=== PATIENT | male | born 1965 | race Caucasian/White ===

== ENCOUNTER 2025-03-12 17:50 | Observation (INO) | payer SELFPAY ==
--- OUTSIDE RECORDS SUMMARY | 2025-03-11 01:22 | XMS_ITS | Encounter Summary ---
Author Organization [facility] Healthcare Address [address] [place] [address] Care Team Providers Care Book Editor Name Role Phone Justin Castro DO Primary Care Provider + Reason for Visit * Reason Comments Headache Encounter Details Date Type Department Care Team ([facility] st Contact Info) Description 03/11/2025 1:22 AM CDT - 03/11/2025 2:29 AM CDT Emergency [address] [address] Shay Rendon MD [address] [place] [id number] Acute nonintractable headache, unspecified headache type (Primary Dx); Hypertensive urgency Discharge Disposition: Discharge to home or self care Social History Tobacco Use Types Packs/Day Years Used Date Smoking Tobacco: Former Cigarettes Q uit: 1994 Smokeless Tobacco: Never Alcohol Use Standard Drinks/Week Comments Not Currently 0 (1 standard drink = 0.6 oz pur e alcohol) AUDIT-C Answer Date Recorded Q1: How often do you have a drink containing alc ohol? 2-4 times a month 08/10/2021 Q2: How many drinks containi ng alcohol do you have on a typical day when you are drinking? 1 or 2 08/10/2021 Q3: How often do you have si x or more drinks on one occasion? Never 08/10/2021 PHQ-2 Answer Date Recorded PHQ-2 Total Score (If total score is 3 or more points, staff should administer the PHQ-9) 0 03/10/2021 Personal Safety Answer Date Recorded Have you ever been in or are you currently in a harmful physical or emotional relationship or is someone making you feel afraid or unsafe? Denies 03/10/2025 Sex and Gender Information Value Date Recorded Sex Assigned at Not on file Legal Sex Male 5:05 AM [employer] Gender Identity Not on file Sexual Orientation Not on file documented as of this encounter Last Filed Vital Signs Vital Sign Reading Time Taken Comments Blood Pressure 132/81 03/11/2025 2:00 AM CDT Pulse 57 03/11/2025 2:00 AM CDT Temperature 37 C (98.6 F) 03/10/2025 8:20 PM CDT Respiratory Rate 18 03/11/2025 12:2 6 AM CDT Oxygen Saturation 94% 03/11/2025 2:00 AM CDT Inhaled Oxygen Concentration - - Weight 110.2 kg (242 lb 15.2 oz) 03/10/2025 8:37 PM CDT Height - - Body Mass Index 34.86 09/12/2024 9:34 AM CDT documented in this encounter Discharge Instructions * Attachments The following attachments cannot be sent through Care Everywhere. * Acute Headache (AfterCare(R) Instructions(ER/ED)) (K[place]) documented in this encounter Medications at Time of Discharge aspirin 81 mg enteric coated tablet Take 1 tablet (81 mg total) by mouth daily lisinopriL (PRINIVIL,ZESTRIL ) 40 mg tablet Take 1 tablet by mouth once daily 90 tablet 1 10/15/2024 metoprolol XL (TOPROL-XL) 100 mg 24 hr tablet Take 1 tablet by mouth once daily 90 tablet 1 02/18/2025 nitroglycerin (NITROSTAT) 0.[address] 1 tablet (0.4 mg total) under the tongue every 5 (five) minutes as needed for chest pain 25 tablet 11/05/2023 documented as of this encounter Discharge Disposition Disposition Code Departure Means Destination Comment s Discharge to home or self care documented in this encounter ED Notes * Lou Ayala PA - 03/11/2025 1:51 AM CDT ED NOTE Chief Complaint Chief Complaint Patient presents with Headache History of Present Illness The patient is a 59 y.o. male who presents for evaluation of headache x1 week. Patient notes headache has moved around but mostly in the frontal. Reports nausea and vomiting. Blood pressure noted to be elevated. He took his blood pressure medications at home. Also took Tylenol and Vicodin without improvement. He also had some dizziness. Denies vision changes. History of migraines. Denies trauma or injury. Medical History ALLERGIES: No Known Allergies MEDICATIONS: Prior to Admission medications Medication Sig Start Date End Date Taking? Authorizing Provider aspirin 81 mg enteric coated tablet Take 1 tablet (81 mg total) by mouth daily Provider, MD Kelsy lisinopriL (PRINIVIL,ZESTRIL) 40 mg tablet Take 1 tablet by mouth once daily 10/15/24 PrasadV. Wright MD metoprolol XL (TOPROL-XL) 100 mg 24 hr tablet Take 1 tablet by mouth once daily 02/18/25 Guanaco Wright MD nitroglycerin (NITROSTAT) 0.[address] 1 tablet (0.4 mg total) under the tongue every 5 (five) minutes as needed for chest pain 11/05/23 Guanaco Wright MD PAST MEDICAL HISTORY: Past Medical History: Diagnosis Date CAD (coronary artery disease) Dyslipidemia Ear problems Heart attack (HCC) HL (hearing loss) HTN (hypertension) Hyperlipidemia NSTEMI (non-ST elevated myocardial infarction) (HCC) Tinnitus PAST SURGICAL HISTORY: Past Surgical History: Procedure Laterality Date CARDIAC CATHETERIZATION CORONARY ANGIOPLASTY CORONARY STENT PLACEMENT FAMILY HISTORY: Family History Problem Relation Age of Onset No Known Problems Mother No Known Problems Father No Known Problems Sister No Known Problems Son SOCIAL HISTORY: Social History Tobacco Use Smoking status: Former Current packs/day: 0.00 Types: Cigarettes Quit date: 1994 Years since quittin.8 Smokeless tobacco: Never Substance and Sexual Activity Drug use: Never Sexual activity: Not on file Alcohol Use: Not At Risk (08/10/2021) AUDIT-C Frequency of Alcohol Consumption: 2-4 times a month Average Number of Drinks: 1 or 2 Frequency of Binge Drinking: Never Review of Systems All systems reviewed and are neg or non contributory for this patients presentation today other than as stated in the HPI . Physical Exam BP 142/79 Pulse 59 Temp 37 ??C (98.6 ??F) Resp 18 Wt 110.2 kg (242 lb 15.2 oz) SpO2 95% BMI 34.86 kg/m?? Physical Exam Vitals and nursing note reviewed. Eyes: Conjunctiva/sclera: Conjunctivae normal. Cardiovascular: Rate and Rhythm: Normal rate and regular rhythm. Pulses: Normal pulses. Heart sounds: Normal heart sounds. Pulmonary: Effort: Pulmonary effort is normal. Breath sounds: Normal breath sounds. Musculoskeletal: General: Normal range of motion. Cervical back: Normal range of motion and neck supple. Skin: General: Skin is warm. Capillary Refill: Capillary refill takes less than 2 seconds. Neurological: General: No focal deficit present. Mental Status: He is alert. Psychiatric: Mood and Affect: Mood normal. Diagnostic Studies / Procedures LABORATORY STUDIES: Labs Reviewed URINALYSIS AND REFLEX TO MICROSCOPIC AND CULTURE - Abnormal Result Value Color, ur Yellow Clarity, ur Clear Specific gravity, ur 1.020 pH, urine 7.5 Protein, ur ql 1+ (*) Glucose, ur ql Negative Ketones, ur Negative Bilirubin, ur Negative Blood, ur Negative Urobilinogen, ur <2.0 Nitrite, ur Negative Leukocyte esterase, ur Negative UA reflex comment Reflex to microscopic UA will be performed. CBC WITH AUTO DIFFERENTIAL - Abnormal WBC 10.50 (*) Hgb 16.5 Hct 47.6 Plt 246 MPV 10.3 RBC 5.64 MCV 84.4 MCH 29.3 MCHC 34.7 RDW CV 12.5 RDW SD 38.2 NRBC abs 0.00 DIFFERENTIAL AUTO - Abnormal Neutrophil abs 8.78 (*) Imm gran abs 0.04 Lymphocyte abs 1.36 Monocyte abs 0.26 Eosinophil abs 0.02 Basophil abs 0.04 Neutrophil pct 83.5 Imm gran pct 0.4 Lymphocyte pct 13.0 Monocyte pct 2.5 Eosinophil pct 0.2 Basophil pct 0.4 URINALYSIS, MICROSCOPIC ONLY - Abnormal WBC, ur 6-10 (*) RBC, ur 0-2 Mucous, ur Present (*) Culture Reflex Comment Value: Reflex conditions for urine culture (WBC >10) not met. COMPREHENSIVE METABOLIC PANEL Sodium 137 Potassium, pl 4.1 Chloride 100 CO2 23 Anion gap 14 BUN 12 Creatinine 0.88 Glucose 151 Calcium 9.5 Bilirubin, total 0.5 Protein, pl 7.3 Albumin 4.4 Alk phos 68 ALT 27 AST 25 TROPONIN T HIGH-SENSITIVITY SERIES (BASELINE, 2HR, 4HR, 6HR) Trop T hs 9 TROPONIN T HIGH-SENSITIVITY 2-HOUR Trop T hs 9 Trop T hs delta 0 Trop T hs interp Insignificant EGFR eGFR >90 IMAGING STUDIES: CT Head WO Contrast Final Result 1. No acute process is identified. Electronically signed by: Nick Marvin M.D. CT Head WO Contrast Result Date: 03/10/2025 Narrative: MEDICAL RECORDS NUMBER: [id number] PROCEDURE: CT HEAD WO CONTRAST Date: 03/10/2025 9:10 PM HISTORY: 59 years old Male. Headache, new onset (Age >= 51y) TECHNIQUE: Contiguous axial imageswere acquired from the skull base through to the vertex. Sagittal and coronal reconstruction imagesare provided. CONTRAST: None COMPARISON: None RADIATION DOSE INFORMATION: Automated exposure control dose reduction techniques were used. FINDINGS: Ventricles: Atrophy of the brain is seen diffusely.The ventricles appear grossly unremarkable. Masses: No mass effect is seen. Hemorrhage: No blood products are identified. Skull: The calvarium is intact. Sinuses: The paranasal sinuses are clear. Mastoids: No fluid is seen in the mastoid air cells. Impression: 1. No acute process is identified. Electronically signed by: Nick Marvin M.D. Procedures ED Course / Medical Decision Making MDM Number of Diagnoses or Management Options Acute nonintractable headache, unspecified headache type Hypertensive urgency Diagnosis management comments: DDX includes but is not limited to: Headache, migraine, tension headache, hypertensive urgency versus emergency Patient presents for headache x1 week. Hypertensive upon arrival. Labs okay. CT head negative. Patient was given migraine cocktail and clonidine. Blood pressure much improved. Patient's symptoms haveresolved. Plan for discharge. Advised patient needs to follow up closely with primary care doctor this week for re- evaluation of blood pressure. Strict verbal return precautions reviewed. Patient expresses verbal understanding and agreement with plan. All questions answered to the best of my ability. Nontoxic exit exam. Patient discharged home in stable condition. Amount and/or Complexity of Data Reviewed Clinical lab tests: ordered and reviewed Tests in the radiology section of CPT??: ordered and reviewed Medications ondansetron (ZOFRAN) injection 4 mg (has no administration in time range) cloNIDine (CATAPRES) tablet 0.2 mg (0.2 mg oral Given 03/10/252300) ketorolac (TORADOL) 30 mg/mL injection 15 mg (15 mg intravenous Given 03/10/252301) metoclopramide (REGLAN) 5 mg/mL injection 10 mg (10 mg intravenous Given 03/10/252302) diphenhydrAMINE (BENADRYL) 50 mg/mL injection 25 mg (25 mg intravenous Given 03/10/252304) Diagnoses that have been ruled out: None Diagnoses that are still under consideration: None Final diagnoses: Acute nonintractable headache, unspecified headache type Hypertensive urgency Disposition: DISPOSITION: Home Follow-Up: Justin Castro, DO [address] [facility] [address] [facility] [address] GOLDIE Cooper 03/11/2025 Lou Ayala PA 03/11/25 [id number] * Elisa Bradford RN - 03/10/2025 8:37 PM CDT Pt ambulatory here to triage with c/o headache all over pain 01/21, HUI present since last week and has just increased, pt states he took Advil over the past few days and reports he is not supposed to take it r/t htn. Pt states his blood pressure has been high today, pt states he took 3 doses of lisinopril, 1 gm tylenol, Vicodin around 1700 and went to sleep, pt reports taking 2 baby asa around 11 am. Pt reports vomiting on the way here, pt states he is seeing shadows and having some dizziness intermittently. Pt states he has hx of migraines, last one over 10 years ago. documented in this encounter Plan of Treatment Not on file documented as of this encounter Procedures Procedure Name Priority Date/Time Associated Diagnosis Comments TROPONIN T HIGH-SENSITIVITY 2-HOUR Timed 03/10/2025 10:[address] HEAD WO CONTRAST ED 03/10/2025 9 :52 PM CDT URINALYSIS AND REFLEX TO MICROSCOPIC AND CULTURE STAT 03/10/2025 9:04 PM CDT URINALYSIS, MICROSCOPIC ONLY STAT 03/10/2025 9:04 PM CDT ECG 12-LEAD Routine 03/10/2025 8:54 PM CDT TROPONIN T HIGH-SENSITIVITY SERIES (BASELINE, 2HR, 4HR, 6HR) STAT 03/10/2025 8:52 PM CDT EGFR STAT 03/10/2025 8:52 PM CDT DIFFERENTIAL AUTO STAT 03/10/2025 8:5 2 PM CDT CBC WITH AUTO DIFFERENTIAL STAT 03/10/2025 8:52 PM CDT COMPREHENSIVE METABOLIC PANEL STAT 03/10/2025 8:52 PM CDT documented in this encounter Results * Troponin T high-sensitivity 2-hour (03/10/2025 10:56 PM CDT) Trop T hs 9 <=22 ng/L Comment: Interpretive Data For further hscTnT resources including the diagnostic algorithm and an aid in interpretation, copy and paste this link: https://nrl.testcatalog.org/show/hsTrop Current Interpretive Data last revised 2020. Trop T hs delta 0 ng/L [facility] Trop T hs interp Insignificant [facility] Blood 03/10/2025 10:5 6 PM CDT 03/10/2025 10:58 PM CDT us Talha Alvarado MD LAB BLOOD ORDERABLE S Final Result [facility] [address] [facility] Department [place] [address] * CT Head WO Contrast (03/10/2025 9:52 PM CDT) Anatomical Region Laterality Modality Head and Neck N/A Computed Tomogra phy 03/10/2025 10:0 5 PM CDT Impressions 03/10/2025 10:05 PM CDT 1. No acute process is identified. Electronically signed by: Nick Marvin M.D. Narrative 03/10/2025 10:05 PM CDT MEDICAL RECORDS NUMBER: [id number] PROCEDURE: CT HEAD WO CONTRAST Date: 03/10/2025 9:10 PM HISTORY: 59 years old Male. Headache, new onset (Age >= 51y) TECHNIQUE: Contiguous axial images were acquired from the skull base through to the vertex. Sagittal and coronal reconstruction images are provided. CONTRAST: None COMPARISON: None RADIATION DOSE INFORMATION: Automated exposure control dose reduction techniques were used. FINDINGS: Ventricles: Atrophy of the brain is seen diffusely. The ventricles appear grossly unremarkable. Masses: No mass effect is seen. Hemorrhage: No blood products are identified. Skull: The calvarium is intact. Sinuses: The paranasal sinuses are clear. Mastoids: No fluid is seen in the mastoid air cells. Procedure Note Nick Marvin MD - 03/10/2025 MEDICAL RECORDS NUMBER: [id number] PROCEDURE: CT HEAD WO CONTRAST Date: 03/10/2025 9:10 PM HISTORY: 59 years old Male. Headache, new onset (Age >= 51y) TECHNIQUE: Contiguous axial images were acquired from the skull base through to the vertex. Sagittal and coronal reconstruction images are provided. CONTRAST: None COMPARISON: None RADIATION DOSE INFORMATION: Automated exposure control dose reduction techniques were used. FINDINGS: Ventricles: Atrophy of the brain is seen diffusely. The ventricles appear grossly unremarkable. Masses: No mass effect is seen. Hemorrhage: No blood products are identified. Skull: The calvarium is intact. Sinuses: The paranasal sinuses are clear. Mastoids: No fluid is seen in the mastoid air cells. IMPRESSION: 1. No acute process is identified. Electronically signed by: Nick Marvin M.D. [facility] CT PROCEDURES Final Resul t * (ABNORMAL) Urinalysis, microscopic only (03/10/2025 9:04 PM CDT) WBC, ur 6-10(A) 0 - 5 /HPF RBC, ur 0-2 0 - 2 /HPF [facility] Mucous, ur Present(A) [facility] Culture Reflex Comment Reflex conditions for urine culture (WBC >10) not met. [facility] Urine 03/10/2025 9:04 PM CDT 03/10/2025 9:07 PM CDT Shay Rendon MD LAB URINE ORDERABLES Final Resul t Performing Organization Address [facility] de Phone Number [facility] [address] [place] [address] * (ABNORMAL) Urinalysis reflex to microscopic and culture Urine (03/10/2025 9:04 PM CDT) Color, ur Yellow Yellow Clarity, ur Clear Clear [facility] Specific gravity, ur 1.020 1.003 - 1.030 [facility] pH, urine 7.5 [facility] Comment: Interpretive Data U rine pH is affected by diet, medications, systemic acid-base disturbances, and renal tubular function. pH may affect urinary stone formation. For example, urine pH below 6.0 may help reduce the tendency for calcium phosphate stones and pH greater than 6.0 may reduce the tendency for uric acid stone formation. Source: [facility] Current Interpretive Data was last revised on 2017 Protein, ur ql 1+(A) Negative [facility] Glucose, ur ql Negative Negative [facility] Ketones, ur Negative Negative [facility] Bilirubin, ur Negative Negative [facility] Blood, ur Negative Negative [facility] Urobilinogen, ur <2.0 <2.0 mg/dL [facility] Nitrite, ur Negative Negative [facility] Leukocyte esterase, ur Negative Negative [facility] UA reflex comment Reflex to microscopic UA will be performed. [facility] Urine 03/10/2025 9:04 PM CDT 03/10/2025 9:07 PM CDT Shay Rendon MD LAB MICROBIOLOGY - GENERAL ORDER JASMINA Final Result Performing Organization Address City/[facility]/[employer] de Phone Number [address] [place] [address] * ECG 12 lead (03/10/2025 8:54 PM CDT) Ventricular Rate EKG/Min 69 BPM [facility] Atrial Rate 69 BPM [facility] MT-Interval (MSEC) 178 ms [facility] QRS-Interval (MSEC) 86 ms [facility] QT-Interval (MSEC) 418 ms [facility] QTc 447 ms [facility] P [place] -6 degrees [facility] R [place] -11 degrees [facility] T [place] 24 degrees [facility] Diagnosis Normal sinus rhythm Nonspecific T wave abnormality When compared with ECG of 25-JUN-2024 11:16, Significant changes have occurred Confirmed by SULTAN JENKINS M.D. ([id number]) on 03/11/2025 6:39:07 AM [facility] 03/10/2025 8:54 PM CDT 03/11/2025 6:39 AM CDT us Shay Rendon MD ECG ORDERABLES Final Result [facility] [place] * eGFR (03/10/2025 8:52 PM CDT) eGFR >90 >=60 mL/min/1. 73 m2 Comment: Interpretive Data Reference Interval Normal >/= 90 mL/min/1.73m2 Mildly decreased* 60 - 89 mL/min/1.73m2 Mildly to moderately decreased 45 - 59 mL/min/1.73m2 Moderately to severely decreased 30 - 44 mL/min/1.73m2 Severely decreased 15 - 29 mL/min/1.73m2 Kidney Failure < 15 mL/min/1.73m2 *Relative to young adult level Estimated glomerular filtration rate is determined by the 2020 CKD-EPI equation recommended by the National Kidney Foundation (A Unifying Approach to GFR Estimation: Recommendations of the NKF-ASK Task Force on Reassessing the Inclusion of Race in Diagnosing Kidney Disease, JASN 2020). The CKD-EPI equation should not be used for patients with unstable renal function and has not been validated in children and those over 70. Current interpretive data was last reviewed 2021. Blood 03/10/2025 8:52 PM CDT 03/10/2025 8:54 PM CDT us Shay Rendon MD LAB BLOOD ORDERABLES Final Resul t [facility] [address] [facility] Department [place] [address] * (ABNORMAL) Differential, auto (03/10/2025 8:52 PM CDT) Neutrophil abs 8.78(H) 1.50 - 6.50 K/cumm Imm gran abs 0.04 0.00 - 0.10 K/cumm [facility] Lymphocyte abs 1.36 0.80 - 3.30 K/cumm [facility] Monocyte abs 0.26 0.20 - 0.80 K/cumm [facility] Eosinophil abs 0.02 0.00 - 0.50 K/cumm [facility] Basophil abs 0.04 0.00 - 0.10 K/cumm [facility] Neutrophil pct 83.5 % [facility] Comment: Interpretive Data Percent cell count reference ranges are not reported, since discordance with absolute values may lead to misinterpretation of CBC data. Current Interpretive Data was last revised on 2017. Imm gran pct 0.4 % [facility] Comment: Interpretive Data Percent cell count reference ranges are not reported, since discordance with absolute values may lead to misinterpretation of CBC data. Current Interpretive Data was last revised on 2017. Lymphocyte pct 13.0 % [facility] Comment: Interpretive Data Percent cell count reference ranges are not reported, since discordance with absolute values may lead to misinterpretation of CBC data. Current Interpretive Data was last revised on 2017. Monocyte pct 2.5 % [facility] Comment: Interpretive Data Percent cell count reference ranges are not reported, since discordance with absolute values may lead to misinterpretation of CBC data. Current Interpretive Data was last revised on 2017. Eosinophil pct 0.2 % [facility] Comment: Interpretive Data Percent cell count reference ranges are not reported, since discordance with absolute values may lead to misinterpretation of CBC data. Current Interpretive Data was last revised on 2017. Basophil pct 0.4 % [facility] Comment: Interpretive Data Percent cell count reference ranges are not reported, since discordance with absolute values may lead to misinterpretation of CBC data. Current Interpretive Data was last revised on 2017. Blood 03/10/2025 8:52 PM CDT 03/10/2025 8:54 PM CDT Shay Rendon MD LAB BLOOD ORDERABLES Final Resul t Performing Organization Address [facility] de Phone Number [address] [address] * Troponin T high-sensitivity series (baseline, 2hr, 4hr, 6hr) (03/10/2025 8:52 PM CDT) Pathologist [facility] Trop T hs 9 <=22 ng/L Comment: Interpretive Data For further hscTnT resources including the diagnostic algorithm and an aid in interpretation, copy and paste this link: https://nrl.testcatalog.org/show/hsTrop Current Interpretive Data last revised 2020. Blood 03/10/2025 8:52 PM CDT 03/10/2025 8:54 PM CDT Shay Rendon MD LAB BLOOD ORDERABLES Final Resul t Performing Organization Address [facility] de Phone Number [address] [address] * Comprehensive metabolic panel (03/10/2025 8:52 PM CDT) Pathologist [facility] Sodium 137 135 - 145 mmol/L Potassium, pl 4.1 3.3 - 4.9 mmol/L [facility] Chloride 100 97 - 110 mmol/L [facility] CO2 23 22 - 32 mmol/L [facility] Anion gap 14 2 - 15 mmol/L [facility] BUN 12 6 - 25 mg/dL [facility] Creatinine 0.88 0.80 - 1.30 mg/dL [facility] Glucose 151 70 - 199 mg/dL [facility] Comment: Interpretive Data Fasting glucose >/= 126 mg/dl is diagnostic for diabetes. Fasting is defined as no caloric intake for at least 8 hours. Fasting glucose between 100 mg/dl to 125 mg/dl is diagnostic of prediabetes. In a patient with classic symptoms of hyperglycemia or hyperglycemic crisis, a random glucose >/= 200 mg/dl is diagnostic for diabetes. In the absence of unequivocal hyperglycemia, results should be confirmed by repeat testing. The classification and Diagnosis of Diabetes Diabetes Care 2021; 46: S19-S40. Current interpretive data was last revised 2022. Calcium 9.5 8.5 - 10.3 mg/dL [facility] Bilirubin, total 0.5 0.1 - 1.2 mg/dL [facility] Protein, pl 7.3 6.5 - 8.5 g/dL [facility] Albumin 4.4 3.5 - 5.0 g/dL [facility] Alk phos 68 40 - 130 Units/L [facility] ALT 27 7 - 55 Units/L [facility] AST 25 10 - 50 Units/L [facility] Blood Venous blood specimen / Unknown 03/10/2025 8:52 PM CDT 03/10/2025 8:54 PM CDT us Shay Rendon MD LAB BLOOD ORDERABLES Final Resul t [facility] [address] [facility] Department [place] [address] * (ABNORMAL) CBC with auto differential (03/10/2025 8:52 PM CDT) Pathologist [facility] WBC 10.50(H) 3.80 - 9.90 K/cumm Hgb 16.5 13.0 - 17.5 g/dL [facility] Hct 47.6 38.9 - 50.3 % [facility] Plt 246 150 - 400 K/cumm [facility] MPV 10.3 9.1 - 12.3 fL [facility] RBC 5.64 4.30 - 5.80 M/cumm [facility] MCV 84.4 81.3 - 96.4 fL [facility] MCH 29.3 27.1 - 33.3 pg [facility] MCHC 34.7 32.3 - 35.7 g/dL [facility] RDW CV 12.5 11.1 - 14.9 % [facility] RDW SD 38.2 35.7 - 48.1 fL [facility] NRBC abs 0.00 0.00 - 0.01 K/cumm [facility] Blood Venous blood specimen / Unknown 03/10/2025 8:52 PM CDT 03/10/2025 8:54 PM CDT us Shay Rendon MD LAB BLOOD ORDERABLES Final Resul t [facility] [address] [facility] Department [place] [address] documented in this encounter Visit Diagnoses Diagnosis Acute nonintractable headache, unspecified headache type- Primary Hypertensive urgency documented in this encounter Administered Medications Inactive Administered Medications - up to 3 most recent administrations Medication Order MAR Action Action Date Dose Rate Site cloNIDine (CATAPRES) tablet 0.2 mg 0.2 mg, oral, Once, On Sun03/10/25 at 2259, For 1 dose, Indications: hypertension, Opioid Withdrawal SymptomsIndications:hypertension, Opioid Withdrawal Symptoms Given 03/10/2025 11:01 PM CDT 0.2 mg diphenhydrAMINE (BENADRYL) 50 mg/mL injection 25 mg 25 mg, intravenous, Administer over 2 Minutes, Once, On Sun03/10/25 at 2259, For 1 dose Given 03/10/2025 11:05 PM CDT 25 mg ketorolac (TORADOL) 30 mg/mL injection 15 mg 15 mg, intravenous, Once, On Sun03/10/25 at 2259, For 1 dose, For Adult IV push, administer over 15 seconds, Indications: PainIndications:Pain Given 03/10/2025 11:02 PM CDT 15 mg metoclopramide (REGLAN) 5 mg/mL injection 10 mg 10 mg, intravenous, Once, On Sun03/10/25 at 2259, For 1 dose Given 03/10/2025 11:03 PM CDT 10 mg ondansetron (ZOFRAN) injection 4 mg 4 mg, intravenous, Administer over 2 Minutes, Once as needed, nausea, vomiting, If patient unable to tolerate PO, Starting on Sun03/10/25 at 2050, For 1 dose, Do not administer if patient is Do not administer if patient had 8mg administered within 6 hours of patient presenting to ED Do not administer if patient was formally diagnosed with prolonged QT syndrome, Indications: nausea or vomitingIndications:nausea or vomiting documented in this encounter Active and Recently Administered Medications Times are shown in CDT. Scheduled Medication Order 03/09/2025 03/10/2025 03/11/2025 cloNIDine (CATAPRES) tablet 0.2 mg (COMPLETED) 0.2 mg, oral, Once, On Sun03/10/25 at 2259, For 1 dose, Indications: hypertension, Opioid Withdrawal Symptoms 2301 (Given - Provider: Natasha Tariq, RN) diphenhydrAMINE (BENADRYL) 50 mg/mL injection 25 mg (COMPLETED) 25 mg, intravenous, Administer over 2 Minutes, Once, On e 03/10/25 at 2259, For 1 dose 2305 (Given - Provider: Natasha Tariq, BALA) ketorolac (TORADOL) 30 mg/mL injection 15 mg (COMPLETED) 15 mg, intravenous, Once, On e 03/10/25 at 2259, For 1 dose, For Adult IV push, administer over 15 seconds, Indications: Pain 2302 (Given - Provider: Natasha Tariq, BALA) metoclopramide (REGLAN) 5 mg/mL injection 10 mg (COMPLETED) 10 mg, intravenous, Once, On e 03/10/25 at 2259, For 1 dose 2303 (Given - Provider: Natasha Tariq, RN) PRN Medication Order 03/09/2025 03/10/2025 03/11/2025 ondansetron (ZOFRAN) injection 4 mg 4 mg, intravenous, Administer over 2 Minutes, Once as needed, nausea, vomiting, If patient unable to tolerate PO, Starting on Sun03/10/25 at 2050, For 1 dose, Do not administer if patient is Do not administer if patient had 8mg administered within 6 hours of patient presenting to ED Do not administer if patient was formally diagnosed with prolonged QT syndrome, Indications: nausea or vomiting documented in this encounter Orders Medications Ordered That Vj ht Not Have Been Administered Count Last Ordered Date First Ordered Date ondansetron (ZOFRAN) injection 4 mg 1 03/10 IV Count Last Ordered Date First Orde red Date SALINE LOCK IV 1 03/10/2025 documented in this encounter Care Teams Book Editor Relationship Specialty Start Date End Date Justin Castro DO PCP - General 07/25/18 documented as of this encounter
[2025-03-12] VITALS (20 sets, daily range): BP systolic 120–222; BP diastolic 69–121; PULSE 61–75; RESP 11–21; TEMP 36.3–36.6; O2SAT 97–100; BMI 34.1
--- NOTE | ~2025-03-12 | XR_ITS ---
XR chest 1V portable INDICATION:cp . REFERENCE: None FINDINGS: A single AP of the chest demonstrates normal heart size. Bilateral lower lobe infiltrates and opacities. There is no evidence of pneumothorax or pleural effusion. IMPRESSION: Bilateral lower lobe infiltrates and opacities. Reviewed, dictated and finalized at location S.
--- NOTE | ~2025-03-12 | CT_ITS ---
CT diagnostic chest wo con HISTORY:RULE OUT PNEUMONIA COMPARISON: None. TECHNIQUE: Axial images of the chest were obtained without infusion of intravenous contrast. Dose optimization technique was utilized. FINDINGS: The examination demonstrates no pulmonary nodules, infiltrates and/or effusions mild bibasal atelectasis are noted.. Cardiac size and mediastinal configuration are normal in appearance. No hilar or mediastinal lymphadenopathy is seen. The thoracic aorta is normal in caliber. Osseous structures are intact. IMPRESSION: No acute cardiopulmonary process. Mild bibasal atelectasis. All CT scans at this facility are performed using low dose modulation techniques as appropriate to perform exam including the following: automated exposure control; use of iterative reconstruction technique; adjustment of the mA and/or kV according to patient size (this includes techniques or standardized protocols for targeted exams where dose is matched to indication/reason for exam). Reviewed, dictated and finalized at location S. IMPRESSION: No acute cardiopulmonary process. Mild bibasal atelectasis. All CT scans at this facility are performed using low dose modulation techniqu es as appropriate to perform exam including the following: automated exposure c ontrol; use of iterative reconstruction technique; adjustment of the mA and/or kV according to patient size (this includes techniques or standardized protocol s for targeted exams where dose is matched to indication/reason for exam).
--- NOTE | ~2025-03-12 | CT_ITS ---
CT brain wo con HISTORY:HEADACHE, HYPERTENSION COMPARISON: None. TECHNIQUE: Axial images were obtained of the head without intravenous contrast. FINDINGS: No acute intracranial hemorrhage, mass effect or midline shift. No extra-axial fluid collections. The calvarium is intact. Visualized paranasal sinuses and mastoid air cells are clear. IMPRESSION: No acute intracranial hemorrhage or extra axial fluid collections. All CT scans at this facility are performed using low dose modulation techniques as appropriate to perform exam including the following: automated exposure control; use of iterative reconstruction technique; adjustment of the mA and/or kV according to patient size (this includes techniques or standardized protocols for targeted exams where dose is matched to indication/reason for exam). Reviewed, dictated and finalized at location S. IMPRESSION: No acute intracranial hemorrhage or extra axial fluid collections. All CT scans at this facility are performed using low dose modulation techniqu es as appropriate to perform exam including the following: automated exposure c ontrol; use of iterative reconstruction technique; adjustment of the mA and/or kV according to patient size (this includes techniques or standardized protocol s for targeted exams where dose is matched to indication/reason for exam).
--- NOTE | 2025-03-12 19:59 | ECG_ITS ---
Test Date: 2025-03-12 19:34:43 Measurements Intervals [place] Rate: 60 P: -23 TN: 200 QRS: -16 QRSD: 105 T: 41 QT: 434 QTc: 436 Interpretive Statements SINUS RHYTHM VOLTAGE CRITERIA FOR LVH CANNOT R/O SEPTAL INFARCT, AGE INDETERMINATE BASELINE ARTIFACT- I, II, AVR ABNORMAL ECG No previous ECG available for comparison Electronically Signed On 03-13-2025 06:17:31 CDT by Gaston Wiley D.O.
--- NOTE | 2025-03-12 20:03 | ED_ITS ---
HPI - Recheck/Abnormal Lab/Rx General Chief Complaint: Recheck/Abnormal Lab/Rx Stated Complaint: HTN Time Seen by Provider: 03/12/25 19:58 Source: patient Mode of arrival: ambulatory Limitations: no limitations History of Present Illness HPI narrative: 59 YEARS OLD WHITE MALE CAME TO THE ED WITH HIS FROM HOME BY PRIVATE CAR WITH INTERMITTENT HEADACHE, FRONTAL AND TEMPORAL, SHARP, PULSATING, SQUEEZING FOR OVER 1 WEEK, WAS SEEN AT [facility] 2 DAYS AGO AND RECEIVED SOME MEDICATION IV WITH SIGNIFICANT IMPROVEMENT, YESTERDAY PATIENT WAS FEELING OKAY AND LATELY STARTED HAVING HEADACHE AGAIN. GOT WORSE TODAY. PATIENT DENIES ANY FEVER, CHILLS, NAUSEA, VOMITING, BLURRY VISION, CHEST PAIN, SHORTNESS OF BREATH OR BACK PAIN OR FOCAL NEURO DEFICIT. PATIENT IS TELLING ME THAT HIS BLOOD PRESSURE IS NORMALLY HIGH ALL THE TIME CURRENTLY PATIENT ON LISINOPRIL AND METOPROLOL PATIENT DENIES SMOKING DRINKING OR USING DRUGS Related Data Allergies Allergy/AdvReac Type Severity Reaction Status Date / Time No Known Allergies Allergy Verified 03/12/25 20:06 Review of Systems 2 Review of Systems: All systems reviewed & are unremarkable except as noted in HPI and below Exam 2 Narrative: GENERAL APPEARANCE: WELL-DEVELOPED, WELL-NOURISHED SKIN: NORMAL COLOR HEAD: NORMOCEPHALIC, NONTRAUMATIC EYES: CLEAR CONJUNCTIVA ENT: OROPHARYNX NORMAL, EARS NORMAL, NOSE NORMAL NECK: SUPPLE, NONTENDER CHEST AND RESPIRATORY: AIRWAY PATENT, NO RESPIRATORY DISTRESS, NO ACCESSORY MUSCLE USE HEART: REGULAR RATE/RHYTHM ABDOMEN: SOFT, NONTENDER, NO ORGANOMEGALY, QUIET BOWEL SOUNDS VASCULAR: NORMAL PERIPHERAL PULSES, NORMAL CAPILLARY REFILL. MUSCULOSKELETAL: NORMAL RANGE OF MOTION, NONTENDER BACK NEUROLOGIC: ALERT AND ORIENTED ?3, TOBACCO FARMWORKER IS NORMAL TESTED, NO GROSS MOTOR DEFICIT Course Vital Signs Vital signs: Vital Signs Temperature 36.6 C 03/12/25 18:02 Pulse Rate 66 03/12/25 18:02 Respiratory Rate 18 03/12/25 18:02 Blood Pressure 222/112 H 03/12/25 18:02 Pulse Oximetry 99 03/12/25 18:02 Oxygen Delivery Room Air 03/12/25 18:02 Temperature 36.6 C 03/12/25 18:02 Pulse Rate 61 03/12/25 20:16 Respiratory Rate 16 03/12/25 20:16 Blood Pressure 209/108 H 03/12/25 20:16 Pulse Oximetry 99 03/12/25 20:16 Oxygen Delivery Room Air 03/12/25 18:02 MDM - Recheck/Abnormal Lab/Rx MDM Narrative Medical decision making narrative: PATIENT PRESENTS WITH FRONTAL AND BITEMPORAL HEADACHE STARTED OVER 1 WEEK AGO, ASSOCIATED WITH ELEVATED BLOOD PRESSURE VITAL SIGNS ON ARRIVAL SHOWING BLOOD PRESSURE 222/112 OTHERWISE WITHIN NORMAL LIMIT PHYSICAL EXAMINATION SHOWING FLUSHED FACE, PATIENT COVERING HIS EYE BECAUSE CANNOT TOLERATE LIGHT PATIENT REPORT HISTORY OF TROUBLE WITH LIGHT ALL HIS LIFE. DIFFERENTIAL DIAGNOSIS HYPERTENSIVE ENCEPHALOPATHY, TENSION HEADACHE, INTRACRANIAL BLEED, BRAIN TUMOR, BLOOD WORKUP TODAY INCLUDES CBC, CMP, TROPONIN SHOWED NO SIGNIFICANT ABNORMALITIES CT HEAD WITHOUT CONTRAST SHOWED NO ACUTE ABNORMALITY, CHEST X-RAY SHOWED BILATERAL LOWER LOBE INFILTRATE AND OPACITIES PATIENT REPORTS THAT HIS WAS DIAGNOSED OF THE FLU 3 WEEKS AGO AND HE STARTED COUGHING AT THAT TIME AND THIS COUGHING IS IMPROVING. BLOOD CULTURE, LACTIC ACID, CRP AND CT CHEST ORDERED TO RULE OUT THE POSSIBILITY OF PNEUMONIA. ROCEPHIN, AZITHROMYCIN IV STARTED ADMIT TO HOSPITALIST Differential Diagnosis Differential diagnosis: Likely other ( ABOVE) Medical Records Attestation: I reviewed the patient's medical records. Lab Data 03/12/25 20:01 03/12/25 20:01 Labs: Lab Results 03/12/25 Range/Units 20:01 WBC 8.8 (4.5-10.0) K/mm3 RBC 5.33 (4.6-6.20) M/mm3 Hgb 15.6 (14.0-18.0) g/dL Hct 45.8 (42.0-52.0) % MCV 85.9 (80-100) fl MCH 29.3 (26-34) pg MCHC 34.1 (32-36) g/dl RDW 12.8 (11.5-14.5) % Plt Count 234 (150-375) k/mm3 MPV 10.5 H (7.4-10.4) fl Immature Gran % (Auto) 0.5 (0-0.5) % Neut % (Auto) 64.3 (45.5-73.1) % Lymph % (Auto) 23.3 (18.3-44.2) % [place] % (Auto) 8.6 H (2.6-8.5) % Eos % (Auto) 2.8 (0-4.4) % Baso % (Auto) 0.5 (0.2-1.2) % Lymph # (Auto) 2.05 (0.9-3.2) K/mm3 [place] # (Auto) 0.8 H (0.1-0.6) K/mm3 Eos # (Auto) 0.3 (0-0.3) K/mm3 Baso # (Auto) 0.0 (0.0-0.1) K/mm3 Abs Immat Gran (auto) 0.04 H (0.00-0.031) K/mm3 Absolute Neuts (auto) 5.7 (1.3-6.7) K/mm3 Absolute Nucleated RBC 0.000 (0.0-0.012) K/mm3 Nucleated RBC % 0.0 (0.0-0.2) % PT 12.7 (11.1-14.7) Seconds INR 1.0 APTT 25.8 (22.3-36.8) Seconds Sodium 136 L (137-145) mmol/L Potassium 3.5 (3.4-5.0) mmol/L Chloride 102 (98-107) mmol/L Carbon Dioxide 27 (22-30) mmol/L Anion Gap 7 (4-12) mmol/L BUN 21 H (9-20) mg/dL Creatinine 1.04 (0.7-1.3) mg/dL Estim Creat Clear Calc 84 ml/min Estimated GFR > 60 (59 - ) Glucose 113 H (65-110) mg/dL Calcium 8.9 (8.4-10.2) mg/dL Total Bilirubin 0.5 (0.2-1.3) mg/dL AST 49 (17-59) U/L ALT 30 (6-50) U/L Alkaline Phosphatase 57 (38-126) U/L Troponin I < 0.012 (0.000-0.034) ng/mL Total Protein 7.1 (6.3-8.2) g/dL Albumin 4.2 (3.5-5.1) g/dL Lipase 43 (23-300) U/L Imaging Data Radiologist's impression: Impressions Chest X-Ray 03/12/25 20:29 IMPRESSION: Bilateral lower lobe infiltrates and opacities. Head CT 03/12/25 21:06 IMPRESSION: No acute intracranial hemorrhage or extra axial fluid collections. All CT scans at this facility are performed using low dose modulation techniques as appropriate to perform exam including the following: automated exposure control; use of iterative reconstruction technique; adjustment of the mA and/or kV according to patient size (this includes techniques or standardized protocols for targeted exams where dose is matched to indication/reason for exam). Critical Care Time Critical Care Time Critical Care Time: Yes Total Critical Care Time: 30 Discharge Plan Discharge Patient Disposition: Still a Patient Patient Language: [place] African Follow-up/Referrals: PHYSICIAN NOT ON STAFF,NONSTAFF [Non-Staff]
[2025-03-12 20:11] LABS: Hematocrit 45.8 % (42.0-52.0); Hemoglobin 15.6 g/dL (14.0-18.0); Immature Granulocyte Percent A 0.5 % (0-0.5); Lymphocytes Absolute Auto 2.05 K/mm3 (0.9-3.2); Mean Corpuscular HGB Conc 34.1 g/dl (32-36); Mean Corpuscular Hemoglobin 29.3 pg (26-34); Mean Corpuscular Volume 85.9 fl (80-100); Nucleated Red Blood Cells Absolute Auto 0.000 K/mm3 (0.0-0.012); Nucleated Red Blood Cells Perc 0.0 % (0.0-0.2); Platelet Count Result 234 k/mm3 (150-375); Red Blood Count 5.33 M/mm3 (4.6-6.20); White Blood Count 8.8 K/mm3 (4.5-10.0)
[2025-03-12] MEDS: ASPIRIN 81 MG CHEWABLE TABLET 324 MG PO (20:15)
[2025-03-12 20:18] LABS: INR 1.0; Prothrombin Time 12.7 Seconds (11.1-14.7)
[2025-03-12 20:19] LABS: Alanine Aminotransferase 30 U/L (6-50); Albumin Level 4.2 g/dL (3.5-5.1); Alkaline Phosphatase 57 U/L (38-126); Anion Gap 7 mmol/L (4-12); Aspartate Amino Transferase 49 U/L (17-59); Bilirubin,Total 0.5 mg/dL (0.2-1.3); Blood Urea Nitrogen 21 mg/dL (9-20); Calcium 8.9 mg/dL (8.4-10.2); Carbon Dioxide 27 mmol/L (22-30); Chloride 102 mmol/L (98-107); Estimated CRCL calculation 84 ml/min; Estimated Glomerular Filt Rate > 60; Glucose 113 mg/dL (65-110); Lipase 43 U/L (23-300); Partial Thromboplastin Time 25.8 Seconds (22.3-36.8); Potassium 3.5 mmol/L (3.4-5.0); Sodium 136 mmol/L (137-145); Total Protein 7.1 g/dL (6.3-8.2)
[2025-03-12 20:30] LABS: Troponin I < 0.012 ng/mL (0.000-0.034)
--- OUTSIDE RECORDS SUMMARY | 2025-03-12 20:33 | XMS_ITS | Clinical Summary ---
Author Organization [facility] Address [address] [place] [address] Care Team Providers Care Quality Rn Name Role Phone Justin Tobar Primary Care Provider [phone] Allergies No known active allergies Social History Tobacco Use Types Packs/Day Years Used Date Smoking Tobacco: Never Smokeless Tobacco: Never Tobacco Cessation:Counseling Given: Not Answered Alcohol Use Standard Drinks/Week Comments Not Currently 0 (1 standard drink = 0.6 oz pur e alcohol) Sex and Gender Information Value Date Recorded Sex Assigned at Male 06/23/2024 9:47 AM [employer] Legal Sex Male 7:40 PM CDT Gender Identity Not on file Sexual Orientation Not on file Last Filed Vital Signs Vital Sign Reading Time Taken Comments Blood Pressure 185/113 06/23/2024 2:15 PM [employer] Pulse 60 06/23/2024 2:15 PM [employer] Temperature 36.7 C (98.1 F) 06/23/2024 9:38 AM [employer] Respiratory Rate 20 06/23/2024 2:15 PM [employer] Oxygen Saturation 100% 06/23/2024 9:38 AM [employer] Inhaled Oxygen Concentration - - Weight 99.8 kg (220 lb) 06/23/2024 9:38 AM [employer] Height 177.8 cm (5' 10) 06/23/2024 9:38 AM [employer] Body Mass Index 31.57 06/23/2024 9:38 AM [employer] Plan of Treatment Health Maintenance Due Date Last Done Comments Colorectal Cancer Screening Colonoscopy (10 Years) 1965 Annual Physical 1968 Hepatitis C 1983 DTaP, Tdap and Td Vaccines ( 1 - Tdap) 1984 Pneumococcal Vaccine: 50+ Ye ars (1 of 1 - PCV) 2015 Zoster Vaccines (1 of 2) 2015 COVID-19 Vaccine (2024-2 6 season) 2025 Influenza Adult (#1) 2025 Hepatitis A Vaccines Aged Out No long er eligible based on patient's age to complete this topic Meningococcal B Vaccine Aged Out No l onger eligible based on patient's age to complete this topic Meningococcal Vaccine Aged Out No krystal stas eligible based on patient's age to complete this topic RSV Immunizations Under 20 Months Aged Out No longer eligible based on patient's age to complete this topic Insurance GENERIC - COMMERCIAL Care Teams Quality Rn Relationship Specialty Start Date End Date Justin Tobar DO [address] [place] [address] [phone] PCP - General FAMILY PRACTICE 06/23/24
--- OUTSIDE RECORDS SUMMARY | 2025-03-12 20:33 | XMS_ITS | Encounter Summary ---
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 us Historical Provider Final Res ult * CARDIOLOGY REPORT (08/23/2017 12:00 AM CDT) Anatomical Region Laterality Modality Other Narrative 08/23/2017 12:00 AM CDT Ordered by an unspecified provider. us Historical Provider CV CARDIAC SERVICES PROCE SHELIA Final Result documented in this encounter Visit Diagnoses Not on filedocumented in this encounter Care Teams Author'S Agent Relationship Specialty Start Date End Date Justin Castro DO PCP - General 07/25/18 documented as of this encounter
--- OUTSIDE RECORDS SUMMARY | 2025-03-12 20:33 | XMS_ITS | Clinical Summary ---
Author Organization [facility] Office Center Address [address] [place] [address] Care Team Providers Care Surgical Scheduler Name Role Phone Justin Castro DO Primary Care Provider + Allergies No known active allergies Medications nitroglycerin (NITROSTAT) 0.[address] 1 tablet (0.4 mg total) under the tongue every 5 (five) minutes as needed for chest pain 25 tablet 4 Active aspirin 81 mg enteric coated tablet Take 1 tablet (81 mg total) by mouth daily Active lisinopriL (PRINIVIL,ZEST RIL) 40 mg tablet Take 1 tablet by mouth once daily 90 tablet 1 5 Active metoprolol XL (TOPROL-XL) 100 mg 24 hr tablet Take 1 tablet by mouth once daily 90 tablet 1 5 Active metoprolol XL (TOPROL-XL) 100 mg 24 hr tablet Take 1 tablet by mouth once daily 90 tablet 1 5 02/19/20 25 Discontinued Active Problems Problem Noted Date Diagnosed Date Dyspnea 05/08/2023 Assessment & Plan (05/08/2023 10:38 AM RESIDENTIAL BUILDING INSPECTOR): Check pft Urinary hesitancy 08/28/2022 Assessment & Plan (08/28/2022 12:17 PM CDT): I am going to start him on Flomax 0.4 mg at HS He needs a UA A new PSA. Last PSA was normal at 2.13 7 months ago Abdominal pain 08/28/2022 Assessment & Plan (08/28/2022 12:18 PM CDT): He describes this as a deep rectal pain. He has had change in bowel movements. Needs a CT scan of his abdomen and pelvis he also on exam has some epigastric discomfort with palpation. Needs a CBC and Chem 7 liver function tests amylase and sed rate Also he needs a referral to gastroenterology for colonoscopy and possible EGD I will await the results of the CT scan for further determination for urologic referral Essential hypertension, benign 06/30/2021 Assessment & Plan (05/08/2023 10:37 AM RESIDENTIAL BUILDING INSPECTOR): Patient is well controlled. Continue current treatment. Assessment & Plan (01/12/2022 10:52 AM CDT): Patient is well controlled. Continue current treatment. Coronary artery disease of n ative artery of [place] heart with stable angina pectoris 06/30/2021 Assessment & Plan (01/12/2022 10:53 AM CDT): Check lipid lft tsh Free t4 Cbc Chem 7 psa Mixed hyperlipidemia 06/30/2021 Assessment & Plan (01/12/2022 10:52 AM CDT): Patient is well controlled. Continue current treatment. Statin intolerance 06/30/2021 Angina pectoris, unspecified 06/17/2021 Assessment & Plan (05/08/2023 10:38 AM RESIDENTIAL BUILDING INSPECTOR): Check a ct chest Ongoing cheat pain and sob Refer to Dr. Hebert for a secong cardiac opinion Annual physical exam 03/10/2021 Assessment & Plan (03/10/2021 7:29 AM CDT): PSA Will set up a colonoscopy He does not want a COVID or a flu vaccine TMJ arthralgia 07/10/2019 Assessment & Plan (07/16/2019 5:45 PM RESIDENTIAL BUILDING INSPECTOR): Unknown cause Stop harshad Add arb Lab 1 week mobic 7.5 Assessment & Plan (07/10/2019 5:09 PM RESIDENTIAL BUILDING INSPECTOR): lab History of placement of stent in LAD coronary ar fátima 08/30/2017 Overview (02/06/2019): Patient had a 4.0x4 mm Synergy stent in the mid left anterior descending. Assessment & Plan (03/31/2020 11:04 AM RESIDENTIAL BUILDING INSPECTOR): Stable Non-ST elevation myocardial infarction (NSTEMI) 08/30/2017 Overview (02/06/2019): In August 2017 Resolved Problems Problem Noted Date Diagnosed Date Resolved Date Ear pain, bilateral 01/12/2022 08/29/19 Assessment & Plan (01/12/2022 11:12 AM CDT): I believe he has eustachian tube dysfunction. I am going to put him on doxycycline 100 mg b.i.d. for 10 days along with prednisone 20 mg daily for 5 days. At the cessation of treatment I will start him on montelukast 10 mg daily we will continue this indefinitely he will update me in 10 days on how he is doing Ear pain, left 08/10/2021 08/28/2022 Assessment & Plan (08/10/2021 10:54 AM CDT): I a.m. going to place him on Omnicef 300 mg b.i.d. for 1 week. He is going to update me in 1 week. He will quit using Q-tips. If symptoms have not resolved I am going to order an MRI of the internal auditory canals to rule out acoustic neuromas. Acute otitis externa of both ears 06/17/2021 08/28/2022 Assessment & Plan (06/17/2021 10:08 AM RESIDENTIAL BUILDING INSPECTOR): Start cortisporin ear drops Abnormal liver function test 05/19/2020 03/10/2021 Chest pain 03/22/2020 03/10/2021 Assessment & Plan (03/22/2020 9:11 AM RESIDENTIAL BUILDING INSPECTOR): Will refer to Dr. Wright I discussed this with him Pt refused cath at his last apt Discussed with pt and Dr. Wright We both believe pt needs a cath He is willing to do if pt agrees Pt has no CP at the present time ER if pain reoccurs Weight gain 03/16/2020 03/10/2021 Precordial pain 03/16/2020 03/10/2021 Neck pain 02/17/2019 03/10/2021 Assessment & Plan (02/17/2019 4:11 PM CDT): Cervical strain Restart norco bid prn 5 mg Atherosclerotic heart diseas e of [place] coronary artery without angina pectoris 04/22/2018 06/30/2021 Overview (02/06/2019): Cardiac catheter done on 08/20/2017 showed occlusive disease involving the LAD. He had stent. He has a diffuse 10-20% stenosis involving the proximal to mid LAD. Distally has 30% stenosis. Circumflex has proximal and mid 25% stenosis. First marginal h Assessment & Plan (03/10/2021 7:41 AM CDT): Is a follow-up from an ER visit in early January. He has had multiple episodes where he develops chest pain. He has reduced his Ranexa to q.d.. He has taken nitroglycerin in the past during these episodes has a gradual reduction in symptoms. His workup in the emergency room was unremarkable. I am going to add a 0.25 Xanax to his regimen if he has this occur again. He is to take his nitroglycerin if this occurs also. He is scheduled to see Dr. Wright in about 4-5 months. Assessment & Plan (03/09/2020 2:45 PM CDT): Check troponin Check cbc and sma 7 Dyslipidemia 08/28/2017 06/30/2021 Assessment & Plan (03/31/2020 11:04 AM RESIDENTIAL BUILDING INSPECTOR): Patient is well controlled. Continue current treatment. Assessment & Plan (03/09/2020 2:45 PM CDT): Patient is well controlled. Continue current treatment. Assessment & Plan (02/17/2019 4:10 PM CDT): Lab pending Essential hypertension 08/28/201706/30 Assessment & Plan (03/31/2020 11:04 AM RESIDENTIAL BUILDING INSPECTOR): Patient is well controlled. Continue current treatment. Assessment & Plan (03/22/2020 9:02 AM RESIDENTIAL BUILDING INSPECTOR): Add toprol xl 50 mg Assessment & Plan (03/09/2020 2:44 PM CDT): Increase lisinopril to 20 mg Assessment & Plan (07/10/2019 5:09 PM RESIDENTIAL BUILDING INSPECTOR): Add amlodipine Assessment & Plan (02/17/2019 3:59 PM CDT): Patient is well controlled. Continue current treatment. Encounters Date Type Department Care Team Description 03/11/2025 1:22 AM CDT - 03/11/2025 2:29 [place] [address] Shay Rendon MD Acute nonintractable headache, unspecified headache type (Primary Dx); Hypertensive urgency Discharge Disposition: Discharge to home or self care from Last 3 Months Immunizations Immunization Administration Dates Next Due Influenza, Unspecified 08/10/2021(Deferr ed: Patient Refused),02/11/2021(Deferred: Patient Refused),02/12/2020(Deferred: Patient Refused) Surgical History Surgery Date Site/Laterality Comments CORONARY STENT PLACEMENT CARDIAC CATHETERIZATION CORONARY ANGIOPLASTY Medical History Medical History Date Comments Dyslipidemia HTN (hypertension) CAD (coronary artery disease) NSTEMI (non-ST elevated myocardial infarction) ( HCC) Heart attack (HCC) Hyperlipidemia Ear problems HL (hearing loss) Tinnitus Family History Medical History Relation Name Comments No Known Problems Father No Known Problems Mother No Known Problems Sister 4 No Known Problems Son 2 Relation Name Status Comments Father Mother Alive Sister 4 Alive Son 2 Alive Social History Tobacco Use Types Packs/Day Years Used Date Smoking Tobacco: Former Cigarettes Q uit: 1994 Smokeless Tobacco: Never Tobacco Cessation:Counseling Given: Not [...] on file Legal Sex Male 5:05 AM RESIDENTIAL BUILDING INSPECTOR Gender Identity Not on file Sexual Orientation Not on file Obstetrics History Last Filed Vital Signs Vital Sign Reading [...] 15.2 oz) 03/10/2025 8:37 PM CDT Height 177.8 cm (5' 10) 09/12/2024 9:34 AM CDT Body Mass Index 34.86 09/12/2024 9:34 AM CDT Plan of Treatment Health Maintenance Due Date Last Done Comments Colon Cancer Screening-Colonoscopy 1965 Hepatitis C Screening 1965 DTaP/Tdap/Td Vaccine (1 - Tdap) 1976 Hepatitis B Screening 1983 Pneumococcal vaccine <65 (1 of 2 - PCV) 1984 Zoster Vaccine (1 of 2) 2015 Depression Screening 03/10/2022 03/10/2021, 03/09/2020, 07/10/2019, Additional history exists Regular Well Visit/Exam 18-64 03/10/2022 03/10/2021, 03/10/2021 Prostate Cancer Screening-PSA 08/28/2024, 01/12/2022, 03/24/2019 Influenza Vaccine (#1) 2025 Procedures Procedure Name Priority Date/Time Associated Diagnosis Comments TROPONIN T HIGH-SENSITIVITY 2-HOUR Timed 03/10/2025 10:[address] HEAD WO CONTRAST ED 03/10/2025 9 :52 PM CDT URINALYSIS, MICROSCOPIC ONLY STAT 03/10/2025 9:04 PM CDT URINALYSIS AND REFLEX TO MICROSCOPIC AND CULTURE STAT 03/10/2025 9:04 PM CDT ECG 12-LEAD Routine 03/10/2025 8:54 PM CDT EGFR STAT 03/10/2025 8:52 PM CDT DIFFERENTIAL AUTO STAT 03/10/2025 8:5 2 PM CDT TROPONIN T HIGH-SENSITIVITY SERIES (BASELINE, 2HR, 4HR, 6HR) STAT 03/10/2025 8:52 PM CDT COMPREHENSIVE METABOLIC PANEL STAT 03/10/2025 8:52 PM CDT CBC WITH AUTO DIFFERENTIAL STAT 03/10/2025 8:52 PM CDT PSA SCREEN Routine 08/28/2022 12:55 PM CDT Screening PSA (prostate specific antigen) from Last 3 Months or Most Recently Relevant to Health Maintenance Results * Troponin T high-sensitivity 2-hour (03/10/2025 10:56 PM CDT) Trop T hs 9 <=22 ng/L Comment: Interpretive Data For further hscTnT resources including the diagnostic algorithm and an aid in interpretation, copy and paste this link: https://nrl.testcatalog.org/show/hsTrop Current Interpretive Data last revised 2020. Trop T hs delta 0 ng/L [facility] Trop T hs interp Insignificant [facility] Blood 03/10/2025 10:5 6 PM CDT 03/10/2025 10:58 PM CDT us Talha Alvarado MD LAB BLOOD ORDERABLE S Final Result [facility] Department [place] [address] * CT Head WO Contrast (03/10/2025 9:52 PM CDT) Anatomical Region Laterality Modality Head and Neck N/A Computed Tomogra phy 03/10/2025 10:0 5 PM CDT Impressions 03/10/2025 10:05 PM CDT 1. No acute process is identified. Electronically signed by: Nick Marvin M.D. Narrative 03/10/2025 10:05 PM CDT MEDICAL RECORDS NUMBER: [id number] PROCEDURE: CT HEAD WO CONTRAST Date: 03/10/2025 [...] Marvin MD - 03/10/2025 MEDICAL RECORDS NUMBER: [id number] PROCEDURE: CT HEAD WO CONTRAST Date: 03/10/2025 [...] signed by: Nick Marvin M.D. Lou AMEZCUA IM CT PROCEDURES Final Resul t * (ABNORMAL) Urinalysis reflex to microscopic and culture Urine (03/10/2025 9:04 PM CDT) Color, ur Yellow Yellow Clarity, ur Clear Clear [facility] Specific gravity, ur 1.020 1.003 - 1.030 [facility] pH, urine 7.5 [facility] Comment: Interpretive Data U rine pH is affected by diet, medications, systemic acid-base disturbances, and renal tubular function. pH may affect urinary stone formation. For example, urine pH below 6.0 may help reduce the tendency for calcium phosphate stones and pH greater than 6.0 may reduce the tendency for uric acid stone formation. Source: [facility] Current Interpretive Data was last revised on 2017 Protein, ur ql 1+(A) Negative [facility] Glucose, ur ql Negative Negative [facility] Ketones, ur Negative Negative [facility] Bilirubin, ur Negative Negative [facility] Blood, ur Negative Negative [facility] Urobilinogen, ur <2.0 <2.0 mg/dL [facility] Nitrite, ur Negative Negative [facility] Leukocyte esterase, ur Negative Negative [facility] UA reflex comment Reflex to microscopic UA will be performed. [facility] Urine 03/10/2025 9:04 PM CDT 03/10/2025 9:07 PM CDT Shay Rendon MD LAB MICROBIOLOGY - GENERAL ORDER JASMINA Final Result Performing Organization Address [facility] de Phone Number [address] [address] * (ABNORMAL) Urinalysis, microscopic only (03/10/2025 9:04 PM CDT) WBC, ur 6-10(A) 0 - 5 /HPF RBC, ur 0-2 0 - 2 /HPF [facility] Mucous, ur Present(A) [facility] Culture Reflex Comment Reflex conditions for urine culture (WBC >10) not met. [facility] Urine 03/10/2025 9:04 PM CDT 03/10/2025 9:07 PM CDT us Shay Renodn MD LAB URINE ORDERABLES Final Resul t Performing Organization Address [facility] de Phone Number [address] [address] * ECG 12 lead (03/10/2025 8:54 PM CDT) Ventricular Rate EKG/Min 69 BPM [facility] Atrial Rate 69 BPM [facility] WA-Interval (MSEC) 178 ms [facility] QRS-Interval (MSEC) 86 ms [facility] QT-Interval (MSEC) 418 ms [facility] QTc 447 ms [facility] P Stirling -6 degrees [facility] R Stirling -11 degrees [facility] T Stirling 24 degrees [facility] Diagnosis Normal sinus rhythm Nonspecific T wave abnormality When compared with ECG of 25-JUN-2024 11:16, Significant changes have occurred Confirmed by SULTAN JENKINS M.D. ([id number]) on 03/11/2025 6:39:07 AM [facility] 03/10/2025 8:54 PM CDT 03/11/2025 6:39 AM CDT us Shay Rendon MD ECG ORDERABLES Final Result Performing Organization Address [facility] de Phone Number [facility] * Troponin T high-sensitivity series (baseline, 2hr, 4hr, 6hr) (03/10/2025 8:52 PM CDT) Trop T hs 9 <=22 ng/L Comment: Interpretive Data For further hscTnT resources including the diagnostic algorithm and an aid in interpretation, copy and paste this link: https://nrl.testcatalog.org/show/hsTrop Current Interpretive Data last revised 2020. Blood 03/10/2025 8:52 PM CDT 03/10/2025 8:54 PM CDT us Shay Rendon MD LAB BLOOD ORDERABLES Final Resul t [facility] [address] [facility] Department [place] [address] * eGFR (03/10/2025 8:52 PM CDT) Pathologist [facility] Department eGFR >90 >=60 mL/min/1. 73 m2 Comment: [...] LAB BLOOD ORDERABLES Final Resul t [facility] [address] [facility] Department [place] [address] * (ABNORMAL) Differential, auto (03/10/2025 8:52 PM CDT) Neutrophil abs 8.78(H) 1.50 - 6.50 K/cumm Imm gran abs 0.04 0.00 - 0.10 K/cumm [facility] Lymphocyte abs 1.36 0.80 - 3.30 K/cumm [facility] Monocyte abs 0.26 0.20 - 0.80 K/cumm [facility] Eosinophil abs 0.02 0.00 - 0.50 K/cumm [facility] Basophil abs 0.04 0.00 - 0.10 K/cumm [facility] Neutrophil pct 83.5 % [facility] Comment: Interpretive Data Percent cell count reference ranges are not reported, since discordance with absolute values may lead to misinterpretation of CBC data. Current Interpretive Data was last revised on 2017. Imm gran pct 0.4 % [facility] Comment: Interpretive Data Percent cell count reference ranges are not reported, since discordance with absolute values may lead to misinterpretation of CBC data. Current Interpretive Data was last revised on 2017. Lymphocyte pct 13.0 % [facility] Comment: Interpretive Data Percent cell count reference ranges are not reported, since discordance with absolute values may lead to misinterpretation of CBC data. Current Interpretive Data was last revised on 2017. Monocyte pct 2.5 % [facility] Comment: Interpretive Data Percent cell count reference ranges are not reported, since discordance with absolute values may lead to misinterpretation of CBC data. Current Interpretive Data was last revised on 2017. Eosinophil pct 0.2 % [facility] Comment: Interpretive Data Percent cell count reference ranges are not reported, since discordance with absolute values may lead to misinterpretation of CBC data. Current Interpretive Data was last revised on 2017. Basophil pct 0.4 % [facility] Comment: Interpretive Data Percent cell count reference ranges are not reported, since discordance with absolute values may lead to misinterpretation of CBC data. Current Interpretive Data was last revised on 2017. Blood 03/10/2025 8:52 PM CDT 03/10/2025 8:54 PM CDT Shay Rendon MD LAB BLOOD ORDERABLES Final Resul t Performing Organization Address [facility] Co de Phone Number [place] [address] [place] [address] * (ABNORMAL) CBC with auto differential (03/10/2025 8:52 PM CDT) Pathologist [facility] Department WBC 10.50(H) 3.80 - 9.90 K/cumm Hgb 16.5 13.0 - 17.5 g/dL [facility] Hct 47.6 38.9 - 50.3 % [facility] Plt 246 150 - 400 K/cumm [facility] MPV 10.3 9.1 - 12.3 fL [facility] RBC 5.64 4.30 - 5.80 M/cumm [facility] MCV 84.4 81.3 - 96.4 fL [facility] MCH 29.3 27.1 - 33.3 pg [facility] MCHC 34.7 32.3 - 35.7 g/dL [facility] RDW CV 12.5 11.1 - 14.9 % [facility] RDW SD 38.2 35.7 - 48.1 fL [facility] NRBC abs 0.00 0.00 - 0.01 K/cumm [facility] Blood Venous blood specimen / Unknown 03/10/2025 8:52 PM CDT 03/10/2025 8:54 PM CDT Shay Rendon MD LAB BLOOD ORDERABLES Final Resul t Performing Organization Address City/[facility]/ZIP Co de Phone Number [place] [address] [place] [place] [address] * Comprehensive metabolic panel (03/10/2025 8:52 PM CDT) Pathologist [facility] Sodium 137 135 - 145 mmol/L Potassium, pl 4.1 3.3 - 4.9 mmol/L [facility] Chloride 100 97 - 110 mmol/L [facility] CO2 23 22 - 32 mmol/L [facility] Anion gap 14 2 - 15 mmol/L [facility] BUN 12 6 - 25 mg/dL [facility] Creatinine 0.88 0.80 - 1.30 mg/dL [facility] Glucose 151 70 - 199 mg/dL [facility] Comment: Interpretive Data Fasting glucose >/= 126 [...] classification and Diagnosis of Diabetes Diabetes Care 202; 46: S19-S40. Current interpretive data was last revised 2022. Calcium 9.5 8.5 - 10.3 mg/dL [facility] Bilirubin, total 0.5 0.1 - 1.2 mg/dL [facility] Protein, pl 7.3 6.5 - 8.5 g/dL [facility] Albumin 4.4 3.5 - 5.0 g/dL [facility] Alk phos 68 40 - 130 Units/L [facility] ALT 27 7 - 55 Units/L [facility] AST 25 10 - 50 Units/L [facility] Blood Venous blood specimen / Unknown 03/10/2025 8:52 PM CDT 03/10/2025 8:54 PM CDT us Shay Rendon MD LAB BLOOD ORDERABLES Final Resul t [facility] [address] [facility] Department [place] [address] * PSA screen (08/28/2022 12:55 PM CDT) PSA-Total 2.77 <=3.90 ng/mL [facility] Comment: Interpretive Data AGE SEX REFERENCE INTERVAL 0 minutes-150 years Female None 0 minutes-49 years Male None 50-59 years Male 0-3.90 60-69 years Male 0-5.40 70-79 years Male 0-6.20 80-150 years Male 0-6.20 The Kelly PSA Total assay procedure was used. Results from different manufacturers or methods may not be comparable. Serial testing should be performed using the same method. Current interpretive data last revised 21. Blood 08/28/2022 12:5 5 PM CDT 08/28/2022 1:04 PM CDT Justin Castro DO LAB BLOOD ORDERABLES Fin al Result [facility] [address] [facility] Department [place] [address] from Last 3 Months or Most Recently Relevant to Health Maintenance Insurance [address] [facility] [place] [id number] Care Teams Surgical Scheduler Relationship Specialty Start Date End Date Justin Castro DO PCP - General 07/25/18
--- OUTSIDE RECORDS SUMMARY | 2025-03-12 20:33 | XMS_ITS | Encounter Summary ---
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 Historical Provider [facility] KIMBERLEE BASS Final Result * CARDIOLOGY REPORT (08/23/2017 12:00 AM CDT) Anatomical Region Laterality Modality Other Narrative 08/23/2017 12:00 AM CDT Ordered by an unspecified provider. Historical Provider [facility] KIMBERLEE BASS Final Result * SCAN - LABS (08/22/2017 12:00 AM CDT) Narrative 08/22/2017 12:00 AM CDT Ordered by an unspecified provider. us Historical Provider Final Res ult documented in this encounter Visit Diagnoses Not on filedocumented in this encounter Care Teams Manager Pharmacy Relationship Specialty Start Date End Date Justin Castro DO PCP - General 07/25/18 documented as of this encounter
[2025-03-12] MEDS: ONDANSETRON INJ 4 MG/2 ML VIAL IV PUSH (20:51)
[2025-03-12] MEDS: HYDROmorphone HCL INJ (*CRX) 1 MG/ML SYR 0.5 MG IV PUSH (20:51)
[2025-03-12] MEDS: KETOROLAC 30 MG/ML VIAL (*BKC) IV PUSH (21:52)
[2025-03-12 22:03] LABS: CRP < 0.5 mg/dL (<1.0)
[2025-03-12] MEDS: AZITHROMYCIN IV 500 MG in SODIUM CHLORIDE 0.9% IV 250 ML IVPB (22:43)
[2025-03-12] MEDS: cefTRIAXone 1 GM in SODIUM CHLORIDE 0.9% IV 50 ML 100 ML IVPB (22:44)
[2025-03-12 22:52] LABS: Add Urine Microscopic? NO; Appearance Urine Clear (Clear); Glucose Urine UA Negative (Negative); Leukocyte Esterase Ur Negative LEU/UL (Negative); Nitrate Urine Negative (Negative); Specific Grav Ur 1.014 (1.001-1.035)
[2025-03-12 23:02] LABS: INR 0.9; Partial Thromboplastin Time 26.0 Seconds (22.3-36.8); Prothrombin Time 12.4 Seconds (11.1-14.7)
--- NOTE | 2025-03-12 23:38 | ADMGEN ---
This patient, Trisha Garay, was admitted to IMU Room 209-01. Patient/family oriented to hospital policies and general routines including ID bracelet, bed and alarms, visiting hours, pain management, procedures, bathroom and other care routines, personal items, smoking policy, room service/diet, and visiting hours. Information on how to activate the Rapid Response Team has been discussed. Patient/Family are encouraged to report perceived risks to care and to ask questions if they do not understand what they are told or what they should do. Received report from Isaura Love. Patient arrived via stretcher at [id number], patient complaining of feeling weird
[2025-03-13] VITALS: PULSE 71
[2025-03-13 00:02] LABS: Influenza A QL RT-PCR Negative (Negative); Influenza B QL RT-PCR Negative (Negative); RSV RNA, RT-PCR Negative (Negative); SARS-CoV-2 RNA PCR Negative (Negative)
[2025-03-13] MEDS: FAMOTIDINE 20 MG/2 ML VIAL IV PUSH (00:06)
--- NOTE | 2025-03-13 00:26 | ECG_ITS ---
Test Date: 2025-03-13 00:34:28 Measurements Intervals [place] Rate: 65 P: -27 AL: 150 QRS: -27 QRSD: 96 T: 148 QT: 433 QTc: 452 Interpretive Statements SINUS RHYTHM CANNOT R/O SEPTAL INFARCT, AGE INDETERMINATE NONSPECIFIC T-WAVE ABNORMALITY- ANTEROLAT/HIGH LAT LEADS ABNORMAL ECG Compared to ECG 03/12/2025 19:34:43 NO SIGNIFICANT CHANGE Electronically Signed On 03-13-2025 06:12:18 CDT by Gaston Wiley D.O.
[2025-03-13] MEDS: ACETAMINOPHEN 325 MG TABLET 650 MG PO (00:32)
[2025-03-13 00:34] LABS: Troponin I < 0.012 ng/mL (0.000-0.034)
[2025-03-13 02:00] VITALS: PULSE 65
--- NOTE | 2025-03-13 03:44 | PM.IMHP ---
H&P: HPI History of Present Illness Date/Time: 03/13/25 01:44 Chief Complaint: Elevated blood pressure and headache Narrative: This is a 59-year-old male patient with a history of hypertension who came to the emergency room with a significant other. The patient had been having intermittent frontal and temporal pulsating squeezing headache with elevated blood pressure. The patient denies any fevers, chills, nausea, or vomiting. His initial blood pressure was 222/112. Patient stated that he was recently seen in the emergency room at [facility] where he was given IV medication in then sent home with prescriptions for his blood pressure. The patient stated that his blood pressure has not gone back down to normal. Patient was given Dilaudid for discomfort. The patient then stated that his headache got worse and he developed some chest pain. He also became flushed. His troponins were negative x2. Chest x-ray was read as bilateral lower lobe infiltrates and opacities. Head CT was read as no acute intracranial hemorrhage or extra axial fluid collections. Chest x-ray was read as no acute cardiopulmonary process. Mild bibasilar atelectasis. The patient was also given ketorolac in the emergency room as well as labetalol. EKG was read as sinus rhythm borderline left axis deviation nonspecific T-wave abnormalities. The patient was given an aspirin 324 mg p.o.. The patient was started on a Zithromax and Rocephin for pneumonia in the emergency room. The patient is being admitted to observation status on the date of service of 03/13/2025. Review of Systems Constitutional: Constitutional: Reports as per HPI and Reports no additional constitutional complaints Eyes: Eyes: Reports as per HPI and Reports no additional eye complaints ENT: Reports system reviewed and no additional complaints, except as documented and Reports Normal hearing present Cardiovascular: Cardiovascular: Reports no additional cardiovascular complaints Respiratory: Respiratory: Reports as per HPI and Reports no additional respiratory complaints Gastrointestinal: Gastrointestinal: Reports as per HPI and Reports no additional gastrointestinal complaints Musculoskeletal: Musculoskeletal: Reports no additional musculoskeletal complaints Integumentary/Breasts: Skin/Breast: Reports system reviewed and no additional complaints, except as docu Neurologic: Reports system reviewed and no additional complaints, except as documented and Reports Normal hearing present Psychiatric: Psychiatric: Reports no additional psychiatric complaints and Reports as per HPI Hematologic/Lymphatic: Hematologic/Lymphatic: Reports no additional hematologic/lymphatic complaints Allergic/Immunologic: Allergic/Immunologic: Reports no additional allergic/immunologic complaints [facility] Past Medical History Medical History (Updated 03/13/25 @ 03:59 by Cheryl Bashri APRN) Hypertension Surgical History Surgical History (Updated 03/13/25 @ 04:00 by Cheryl Bashir APRN) No pertinent past surgical history Family History Family History Father Acute myocardial infarction Mother Dementia Social History Social History (Updated 03/13/25 @ 04:01 by Cheryl Bashir APRN) Social History: He is currently engaged and lives with his significant other. He has 2 children. 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 Code status: Full code Smoking status: Former smoker Smoking end date: 05/14/00 Alcohol intake: never Substance use: never Substance use type: does not use Lack of Transportation: No Lack of Food: Never True Current Housing: I Have Housing Concerned About Future Housing: No Difficulty Paying Gas/Electric Bills: No Difficulty Paying for Meds: No Currently Unemployed: No Education: High School Diploma/GED Difficulty w/ Childcare or Family Care: No Spiritual care concerns: No Meds Home Medications and Allergies Home Medications ?Medication ?Instructions ?Recorded ?Confirmed ?Type lisinopril 40 mg tablet 40 mg PO DAILY 03/12/25 03/12/25 History metoprolol succinate 100 mg 100 mg PO DAILY 03/12/25 03/12/25 History tablet,extended release 24 hr Allergies Allergy/AdvReac Type Severity Reaction Status Date / Time No Known Allergies Allergy Verified 03/12/25 20:06 Vital Signs Vital Signs - 24 hr 03/12/25 18:02 03/12/25 19:21 03/12/25 19:23 Temperature 97.8 F Pulse Rate 66 Respiratory Rate 18 Blood Pressure 222/112 H 209/116 H Pulse Oximetry 99 98 Oxygen Delivery Room Air 03/12/25 19:30 03/12/25 19:30 03/12/25 19:31 Temperature Pulse Rate 61 65 62 Respiratory Rate 18 11 L 14 Blood Pressure 211/121 H 211/121 H Pulse Oximetry 100 98 99 Oxygen Delivery 03/12/25 19:52 03/12/25 20:13 03/12/25 20:15 Temperature Pulse Rate 65 62 61 Respiratory Rate 16 14 14 Blood Pressure Pulse Oximetry 97 100 99 Oxygen Delivery 03/12/25 20:16 03/12/25 20:17 03/12/25 20:36 Temperature Pulse Rate 61 66 67 Respiratory Rate 16 20 19 Blood Pressure 209/108 H Pulse Oximetry 99 100 100 Oxygen Delivery 03/12/25 21:12 03/12/25 21:15 03/12/25 21:16 Temperature Pulse Rate 72 71 71 Respiratory Rate 15 19 18 Blood Pressure 161/76 H Pulse Oximetry 99 100 100 Oxygen Delivery 03/12/25 21:30 03/12/25 21:31 03/12/25 21:45 Temperature Pulse Rate 73 72 70 Respiratory Rate 13 21 H 18 Blood Pressure 130/69 120/78 Pulse Oximetry 100 98 97 Oxygen Delivery 03/12/25 21:46 03/12/25 22:28 03/12/25 23:32 Temperature 97.4 F L Pulse Rate 71 75 73 Respiratory Rate 19 16 20 Blood Pressure 144/83 H Pulse Oximetry 99 98 Oxygen Delivery 03/13/25 00:00 03/13/25 02:00 Temperature Pulse Rate 71 65 Respiratory Rate Blood Pressure Pulse Oximetry Oxygen Delivery Exam Const: General: cooperative, healthy appearing, comfortable, no acute distress, well developed, awake, Physically active, average body habitus and well nourished Nutritional Appearance: average body habitus and well nourished Orientation/consciousness: oriented to person, oriented to place, oriented to time and patient oriented x3 Limitations: no limitations HENMT: Head: normal to inspection, No palpable skull fracture present, normocephalic, atraumatic and abrasion Ears: hearing grossly normal bilaterally and external ears normal Face/Nose/Sinus: Normal external nose present and Normal nares present Mouth: Yes Normal oral and palatal mucosa present Eyes: General: appearance normal, both eyes and all related structures Alignment and Position: alignment normal Eyelids: eyelids normal Neck: Neck: normal visual inspection and full ROM Chest: Chest palpation & inspection: normal inspection of the chest Resp: Effort & Inspection: normal respiratory effort Auscultation: clear to auscultation bilaterally Percussion: percussion normal Cardio: Palpation: normal PMI Rate: regular rate Rhythm: regular rhythm Heart sounds: S1 normal heart sound present and S2 normal heart sound present Peripheral pulses: Peripheral pulses 2+ throughout GI: Inspection: normal to inspection Auscultation: normal bowel sounds Rectal Exam: deferred : General: Yes no CVA tenderness Back/Spine/Pelvis: Back: no CVA tenderness Cervical Spine: cervical ROM normal Skin: General skin exam: normal color Lesions: no lesions Rashes: no rashes Trauma: no lacerations or abrasions Wounds: no wounds Hair: normal Nails: normal Neuro: General: oriented to person, oriented to place, oriented to time and patient oriented x3 Cranial nerves: Yes Normal hearing present Cognition (Neuro): normal cognition Speech: normal speech Gait exam (Neuro): Normal gait present Motor exam (neuro): 5/5 motor strength present throughout Sensory Exam: normal sensation Extrem: General: normal to inspection Psych: Appearance: grossly normal Mental Status: mental status grossly normal Speech and movement: Normal speech and movement present Affect: normal affect Attitude: cooperative Thought process: Normal thought process present Thought content: Yes Normal thought content present Insight: Good insight present (Psych) Judgement: Good judgement present (Psych) H&P: Results Labs Labs: Short CBC 03/12/25 Range/Units 20:01 WBC 8.8 (4.5-10.0) K/mm3 Hgb 15.6 (14.0-18.0) g/dL Hct 45.8 (42.0-52.0) % Plt Count 234 (150-375) k/mm3 BMP 03/12/25 20:01 Sodium 136 L Potassium 3.5 Chloride 102 Carbon Dioxide 27 BUN 21 H Creatinine 1.04 Glucose 113 H Calcium 8.9 Cardiac Enzymes 03/12/25 03/13/25 Range/Units 20:01 00:04 Troponin I < 0.012 < 0.012 (0.000-0.034) ng/mL Liver Function 03/12/25 Range/Units 20:01 Total Bilirubin 0.5 (0.2-1.3) mg/dL AST 49 (17-59) U/L ALT 30 (6-50) U/L Alkaline Phosphatase 57 (38-126) U/L Albumin 4.2 (3.5-5.1) g/dL Urine 03/12/25 Range/Units 22:38 Urine Color Yellow (Yellow) Urine Appearance Clear (Clear) Urine pH 6.0 (5.0-9.0) Ur Specific [place] 1.014 (1.001-1.035) Urine Protein Negative (Negative) mg/dL Urine Glucose (UA) Negative (Negative) mg/dL ECG Interpretation: 65 DC 150 QRSd 96 QT 433 QTc 452 --[place]-- P -27 QRS -27 T 148 SINUS RHYTHM BORDERLINE LEFT AXIS DEVIATION [QRS AXIS < -20] NONSPECIFIC T-WAVE ABNORMALITY Compared to ECG 03/12/2025 19:34:43 T-wave abnormality now presen Imaging CT scan - chest: Radiologist's impression: Impressions Chest X-Ray 03/12/25 20:29 IMPRESSION: Bilateral lower lobe infiltrates and opacities. Head CT 03/12/25 21:06 IMPRESSION: No acute intracranial hemorrhage or extra axial fluid collections. All CT scans at this facility are performed using low dose modulation techniques as appropriate to perform exam including the following: automated exposure control; use of iterative reconstruction technique; adjustment of the mA and/or kV according to patient size (this includes techniques or standardized protocols for targeted exams where dose is matched to indication/reason for exam). Chest CT 03/12/25 22:03 IMPRESSION: No acute cardiopulmonary process. Mild bibasal atelectasis. All CT scans at this facility are performed using low dose modulation techniques as appropriate to perform exam including the following: automated exposure control; use of iterative reconstruction technique; adjustment of the mA and/or kV according to patient size (this includes techniques or standardized protocols for targeted exams where dose is matched to indication/reason for exam). Assessment and Plan Assessment and plan (1) Pneumonia: Code(s): J18.9 - Pneumonia, unspecified organism Status: Acute Assessment and Plan: -a Zithromax and Rocephin was started as per protocol. -blood and sputum cultures are pending. -Legionella cultures are pending. -DuoNebs ordered -lactic is 1.8. -he is afebrile and has no leukocytosis. (2) Hypertension: Code(s): I10 - Essential (primary) hypertension Status: Acute Assessment and Plan: -p.r.n. hydralazine with parameters. -continue with lisinopril and metoprolol. -I have requested records from [facility] in [place] for the ER visit there -initial blood pressure 222/112. His blood pressure dropped down to 120/78 time. Currently his blood pressure is 144/83. -renal function are within normal limits. (3) Headache: Code(s): R51.9 - Headache, unspecified Status: Acute Assessment and Plan: -the patient was given Toradol in the emergency room and he tolerated that well. However he was given Dilaudid in the made his headache worse. The Dilaudid made him feel flushed and nauseated as well. -the patient has a slight headache to the left parietal area at this time. He is rating it a 3/10. He stated it is tolerable. -p.r.n. Fioricet Quality VTE Prophylaxis VTE prophylaxis: pharmacologic ordered
[2025-03-13 03:56] LABS: Troponin I < 0.012 ng/mL (0.000-0.034)
[2025-03-13 04:00] VITALS: BP 142/68; PULSE 61; PULSE 62; PULSE 65; RESP 16; RESP 20; TEMP 36.7; O2SAT 98
[2025-03-13 07:12] LABS: Hematocrit 43.4 % (42.0-52.0); Hemoglobin 14.9 g/dL (14.0-18.0); Immature Granulocyte Percent A 0.5 % (0-0.5); Lymphocytes Absolute Auto 2.04 K/mm3 (0.9-3.2); Mean Corpuscular HGB Conc 34.3 g/dl (32-36); Mean Corpuscular Hemoglobin 29.5 pg (26-34); Mean Corpuscular Volume 85.9 fl (80-100); Nucleated Red Blood Cells Absolute Auto 0.000 K/mm3 (0.0-0.012); Nucleated Red Blood Cells Perc 0.0 % (0.0-0.2); Platelet Count Result 210 k/mm3 (150-375); Red Blood Count 5.05 M/mm3 (4.6-6.20); White Blood Count 9.6 K/mm3 (4.5-10.0)
[2025-03-13 07:24] LABS: Anion Gap 7 mmol/L (4-12); Blood Urea Nitrogen 20 mg/dL (9-20); Calcium 8.7 mg/dL (8.4-10.2); Carbon Dioxide 25 mmol/L (22-30); Chloride 103 mmol/L (98-107); Estimated CRCL calculation 93 ml/min; Estimated Glomerular Filt Rate > 60; Glucose 105 mg/dL (65-110); Potassium 3.8 mmol/L (3.4-5.0); Sodium 135 mmol/L (137-145)
[2025-03-13 07:35] LABS: Troponin I 0.012 ng/mL (0.000-0.034)
[2025-03-13 08:00] VITALS: BP 146/78; PULSE 55; PULSE 61; RESP 20; TEMP 36.3; O2SAT 98
[2025-03-13] MEDS: ACETAMINOPHEN/BUTALBITAL/CAFFEINE 325-50-40 MG TABLET (FIORICET) 1 TAB PO (09:15)
[2025-03-13 09:16] VITALS: PULSE 60
[2025-03-13] MEDS: METOPROLOL SUCCINATE EXT REL 100 MG TABCR PO (09:16)
--- NOTE | 2025-03-13 10:00 | PC.NURSE ---
The patient decided that he did not need to be admitted any longer and this RN explained why it was appropriate to be here. The patient asked if there were any other labs, tests, procedures, or results that the doctor would need to discuss with him. This RN stated that she was not sure and would reach out to the doctor about the patient's concerns. The patient proceeded to state that he can do what was being done at the hospital at home and he was going to call his to come get him. This RN told the patient that she would notify the doctor of the patient's concerns. This RN called the doctor at 0919 with no answer or call back. This RN called again at 0927 with no answer or no reply. The patient continued to get ready to leave. This RN educated the patient about the possible risks and complications that could occur should he leave before being medically stable. This RN also communicated to the patient that if his condition worsens to not hesitate returning to the emergency room. This RN provided that AMA form for the patient and asked that he read and sign the form. The patient glanced over the AMA form and refused to sign it. The charge attendant was made aware of the situation and attempted to call the provider as well with no answer at [phone]. The patient left the unit at 0945, and the doctor returned the phone call after the patient already left. This RN informed the provider of the situation.
--- NOTE | 2025-03-13 15:43 | P.DS_ITS ---
DS: Admitting Diagnosis Discharge Date 03/13/25 Admitting Diagnosis Hypertension DS: Discharge Diagnosis Discharge Diagnosis (1) Pneumonia: Code(s): J18.9 - Pneumonia, unspecified organism Status: Acute (2) Hypertension: Code(s): I10 - Essential (primary) hypertension Status: Acute (3) Headache: Code(s): R51.9 - Headache, unspecified Status: Acute DS: Summary Hospital Course Hospital Course: This is a 59-year-old male with history of hypertension came with headache and elevated blood pressure. No fever chills or vomiting. Initial blood pressure was 222/112. He was recently seen in the ED at [facility] and was given IV medication and was sent home with prescriptions. Patient stated that his blood pressure has not gone back normal. Patient was given Dilaudid for discomfort. He stated his headache got worse and about some chest pain got flushed. Troponins were done which came back negative x2. Chest x-ray read as bilateral lower lobe infiltrate and opacities. CT head was read with no acute intracranial hemorrhage or extra-axial fluid collection. Received Ketoralac in the ED as well as labetalol. EKG with sinus rhythm borderline left axis deviation nonspecific T-wave abnormalities. Received aspirin 324 mg p.o. x1 and was started on Rocephin and Zithromax for pneumonia. Patient was admitted for further treatment. Blood pressure was monitored during the hospital stay. Patient however left against medical advise prior to my evaluation. Time Spent with Patient Time attestation: Total time spent providing and/or coordinating discharge services: Exam Narrative: Did not examine DS: Data Data Completed and Pending Labs on day of discharge: Labs from last 24 hours 03/13/25 03/13/25 03/13/25 07:04 01:59 00:04 WBC 9.6 RBC 5.05 Hgb 14.9 Hct 43.4 MCV 85.9 MCH 29.5 MCHC 34.3 RDW 13.0 Plt Count 210 MPV 10.4 Immature Gran % (Auto) 0.5 Neut % (Auto) 67.1 Lymph % (Auto) 21.2 [place] % (Auto) 8.7 H Eos % (Auto) 2.0 Baso % (Auto) 0.5 Lymph # (Auto) 2.04 [place] # (Auto) 0.8 H Eos # (Auto) 0.2 Baso # (Auto) 0.1 Abs Immat Gran (auto) 0.05 H Absolute Neuts (auto) 6.5 Absolute Nucleated RBC 0.000 Nucleated RBC % 0.0 PT INR APTT Sodium 135 L Potassium 3.8 Chloride 103 Carbon Dioxide 25 Anion Gap 7 BUN 20 Creatinine 0.92 Estim Creat Clear Calc 93 Estimated GFR > 60 Glucose 105 Lactic Acid Calcium 8.7 Total Bilirubin AST ALT Alkaline Phosphatase Troponin I 0.012 < 0.012 < 0.012 C-Reactive Protein Total Protein Albumin Lipase Urine Color Urine Appearance Urine pH Ur Specific [place] Urine Protein Urine Glucose (UA) Urine Ketones Ur Blood (Man) Urine Nitrate Urine Bilirubin Urine Urobilinogen Leukocyte Esterase Rfl Influenza A (RT-PCR) Influenza B (RT-PCR) RSV (RT-PCR) SARS-CoV-2 RNA (RT-PCR) 03/12/25 03/12/25 22:38 20:01 WBC 8.8 RBC 5.33 Hgb 15.6 Hct 45.8 MCV 85.9 MCH 29.3 MCHC 34.1 RDW 12.8 Plt Count 234 MPV 10.5 H Immature Gran % (Auto) 0.5 Neut % (Auto) 64.3 Lymph % (Auto) 23.3 [place] % (Auto) 8.6 H Eos % (Auto) 2.8 Baso % (Auto) 0.5 Lymph # (Auto) 2.05 [place] # (Auto) 0.8 H Eos # (Auto) 0.3 Baso # (Auto) 0.0 Abs Immat Gran (auto) 0.04 H Absolute Neuts (auto) 5.7 Absolute Nucleated RBC 0.000 Nucleated RBC % 0.0 PT 12.4 12.7 INR 0.9 1.0 APTT 26.0 25.8 Sodium 136 L Potassium 3.5 Chloride 102 Carbon Dioxide 27 Anion Gap 7 BUN 21 H Creatinine 1.04 Estim Creat Clear Calc 84 Estimated GFR > 60 Glucose 113 H Lactic Acid 1.8 Calcium 8.9 Total Bilirubin 0.5 AST 49 ALT 30 Alkaline Phosphatase 57 Troponin I < 0.012 C-Reactive Protein < 0.5 Total Protein 7.1 Albumin 4.2 Lipase 43 Urine Color Yellow Urine Appearance Clear Urine pH 6.0 Ur Specific [place] 1.014 Urine Protein Negative Urine Glucose (UA) Negative Urine Ketones Negative Ur Blood (Man) Negative Urine Nitrate Negative Urine Bilirubin Negative Urine Urobilinogen 0.2 Leukocyte Esterase Rfl Negative Influenza A (RT-PCR) Negative Influenza B (RT-PCR) Negative RSV (RT-PCR) Negative SARS-CoV-2 RNA (RT-PCR) Negative Imaging Radiologist's impression: ITS Impressions Chest X-Ray 03/12/25 20:29 IMPRESSION: Bilateral lower lobe infiltrates and opacities. Head CT 03/12/25 21:06 IMPRESSION: No acute intracranial hemorrhage or extra axial fluid collections. All CT scans at this facility are performed using low dose modulation technique s as appropriate to perform exam including the following: automated exposure control; use of iterative reconstruction technique; adjustment of the mA and/or kV according to patient size (this includes techniques or standardized protocols for targeted exams where dose is matched to indication/reason for exam). Chest CT 03/12/25 22:03 IMPRESSION: No acute cardiopulmonary process. Mild bibasal atelectasis. All CT scans at this facility are performed using low dose modulation techniques as appropriate to perform exam including the following: automated exposure control; use of iterative reconstruction technique; adjustment of the mA and/or kV according to patient size (this includes techniques or standardized protocols for targeted exams where dose is matched to indication/reason for exam). Discharge Plan Discharge Patient Disposition: Left Against Medical Advice Patient Instructions: Chronic Hypertension (GEN), Bacterial Pneumonia (GEN) Patient Language: Danish Discharge Medications: No Action metoprolol succinate 100 mg tablet extended release 24 hr 100 mg PO DAILY lisinopril 40 mg tablet 40 mg PO DAILY Date of admission: 03/12/25 22:00 Primary Care Provider: MatthewJustin Admitting Provider: Jared Sims Attending physician on admission: Jared Sims Condition: Stable
== END 2025-03-13 09:45 | disposition left against medical advice (07) ==
LOC: ANHED 22:00 → ANHIMU 03-13 00:29
PROVIDERS: Nurse Practitioner; Admitting Provider Internal Medicine; Emergency Provider Emergency Medicine; PCP Family Medicine; Visit Provider Internal Medicine
DX: J18.9 Pneumonia, unspecified organism (principal); R51.9 Headache, unspecified; I10 Essential (primary) hypertension; Z87.891 Personal history of nicotine dependence; Z53.29 Procedure and treatment not carried out because of patient's decision for other reasons; Z20.822 Contact with and (suspected) exposure to COVID-19
CPT/HCPCS: 36415; 70450; 71045; 71250; 80048; 80053; 81003; 83605; 83690; 84484; 85025; 85610; 85730; 86140; 87040; 87637; 93005; 96365; 96367; 96375; 99285; A9270; G0378; J0360; J0456; J0696; J1171; J1885; J2405; J7050